=== PATIENT | male | born 1985 | race Two or more races ===

== ENCOUNTER 2017-08-02 04:38 | Inpatient (IN) | payer BC ==
[~2017-08-02] VITALS: Ht 180.3 cm; Wt 90.3 kg
[2017-08-02] MEDS ORDERED: LORazepam 0.5 MG TAB PO ONE (05:15)
[2017-08-02] MEDS ORDERED: hydrALAZINE HCL 20 MG/ML VL IV ONE (05:15)
[2017-08-02] MEDS ORDERED: MORPHINE SULFATE 10 MG/ML INJ 1ML SDV IV ONE (05:15)
[2017-08-02] MEDS ORDERED: ASPirin-EC 325mg tab PO ONE (05:15)
[2017-08-02 05:22] LABS: Basophils # (auto) 0 uL; Basophils % (auto) 0.4 % (0.0-2.0); Eosinophils # (auto) 0 uL; Eosinophils % (auto) 0.3 % (0.0-7.0); Hematocrit 48.6 % (41.0-53.0); Hemoglobin 17.3 g/dL (13.5-17.5); Lymphocytes # (auto) 1.2 uL; Lymphocytes % (auto) 13.8 % (10.0-50.0); Mean Corpuscular Hemoglobin 32.5 pg (28.0-32.0); Mean Corpuscular Hgb Conc. 35.5 g/dL (32.0-36.0); Mean Corpuscular Volume 91.4 fL (80.0-100.0); Mean Platelet Volume 6.8 fL (6.9-10.8); Monocytes # (auto) 0.5 uL; Monocytes % (auto) 5.4 % (0.0-12.0); Neutrophils % (auto) 80.1 % (37.0-80.0); Nucleated Red Blood Cells % 0.1 %; Platelet Count (auto) 332 10^3/uL (140-450); Red Cell Distribution Width 12.7 % (11.8-14.3); White Blood Cell 8.8 10^3/uL (4.4-10.8)
[2017-08-02 05:39] LABS: Albumin 4.4 g/dL (3.4-5.0); Alkaline Phosphatase 99 U/L (45-117); Anion Gap 14 (5-15); Aspartate Aminotransferase 31 U/L (15-37); BUN/Creatinine Ratio 15.2; Bilirubin, Total 0.8 mg/dL (0.2-1.0); Blood Urea Nitrogen 16 mg/dL (7-18); Calcium 8.9 mg/dL (8.5-10.1); Carbon Dioxide 20 mmol/L (21-32); Chloride 103 mmol/L (98-107); GFR African American 105 mL/min; GFR Non-African American 87 mL/min; Glucose 122 mg/dL (74-106); Magnesium 1.8 mg/dL (1.6-2.6); Potassium 3.6 mmol/L (3.5-5.1); Sodium 137 mmol/L (136-145); Total Protein 8.2 g/dL (6.4-8.2)
[2017-08-02 05:42] LABS: INR 1.02 (0.9-1.15); Partial Thromboplastin Time 25.4 sec (22.64-33.71); Prothrombin Time 11.1 sec (9.37-12.3)
[2017-08-02 06:14] LABS: B-Type Natriuretic Peptide 6.3 pg/mL (0-100); Temperature: 21.8 C (20.0-25.0)
[2017-08-02] MEDS ORDERED: ENALAPRILAT 1.25 MG/ML-1ML VIAL IV ONE (06:15)
[2017-08-02] MEDS ORDERED: AMLO5TAB2 PO (08:50)
[2017-08-02] MEDS ORDERED: NITROGLYCERIN 0.4 MG SL TAB SL PRN ×2 (09:45)
[2017-08-02] MEDS ORDERED: cloNIDine HCL 0.1 MG TAB PO PRN (09:45)
[2017-08-02] MEDS ORDERED: MORPHINE SULFATE 10 MG/ML INJ 1ML SDV IV PRN ×2 (09:45)
[2017-08-02] MEDS ORDERED: LABETALOL HCL 5 MG/ML 4ML SYRINGE IV PRN (09:45)
[2017-08-02] MEDS ORDERED: LORazepam 0.5 MG TAB PO PRN (09:45)
[2017-08-02] MEDS ORDERED: ACETAMINOPHEN 325 MG TAB PO PRN (09:45)
[2017-08-02] MEDS ORDERED: ONDANSETRON HCL 4 MG/2 ML VIAL IV PRN (09:45)
[2017-08-02] MEDS ORDERED: ZOLPIDEM TARTRATE 5 MG TAB PO PRN (09:45)
[2017-08-02] MEDS ORDERED: ALUM & MAG HYDROX-SIMETH LIQ(MAALOX) 30 ML PO ONE (09:45)
[2017-08-02] MEDS: DOCUSATE SOD 100 MG CAP PO SCH (10:00)
[2017-08-02] MEDS: ASPirin 81 mg TAB PO SCH (10:00)
[2017-08-02] MEDS ORDERED: CARVEDILOL 3.125 MG TAB PO SCH (10:00)
[2017-08-02] MEDS ORDERED: METOPROLOL TARTRATE 50 MG TAB PO ONE (10:30)
[2017-08-02] MEDS: CLOPIDOGREL BISULFATE 75 MG TAB PO SCH (11:30)
[2017-08-02] MEDS: ENALAPRIL MALEATE 2.5 MG TAB PO SCH ×2 (11:32→21:41)
[2017-08-02 12:00] VITALS: BP 158/94
[2017-08-02] MEDS ORDERED: IOHEXOL 350 MG/ML 100ML IJ ONE (13:02)
[2017-08-02] MEDS ORDERED: METOPROLOL TARTRATE 1MG/1ML-5ML VIAL IV ONE (13:06)
[2017-08-02] MEDS ORDERED: NITROGLYCERIN 0.4 MG SL TAB SL ONE (13:06)
[2017-08-02 15:00] VITALS: BP 157/118
[2017-08-02] MEDS: SODIUM CHLOR 0.9% PF (SALINE LOCK) 10ML VIAL IV SCH ×2 (15:45→21:42)
[2017-08-02 17:00] VITALS: BP 130/79
[2017-08-02 20:00] VITALS: BP 135/88
[2017-08-02 20:10] LABS: Urine RBC None Seen /hpf (0 - 3)
[2017-08-02 20:26] LABS: Urine Bilirubin Negative (Negative); Urine Blood Negative /uL (Negative); Urine Color Yellow (Yellow); Urine Glucose Normal (Normal); Urine Ketone Negative (Negative); Urine Nitrite Negative (Negative); Urine Squamous Epithelial Cell FEW /hpf (<5); Urine Urobilinogen Normal (Negative); Urine pH 6.5 (5.0-8.0)
[2017-08-02] MEDS: METOPROLOL TARTRATE 50 MG TAB PO SCH (21:41)
[2017-08-02 22:00] VITALS: BP 135/88
[2017-08-02] MEDS ORDERED: ATORVASTATIN 20 MG TAB PO SCH (22:00)
[2017-08-03 05:00] VITALS: BP 145/80
[2017-08-03] MEDS: SODIUM CHLOR 0.9% PF (SALINE LOCK) 10ML VIAL IV SCH ×2 (06:22→13:41)
[2017-08-03 07:36] LABS: BUN/Creatinine Ratio 14.2; Bilirubin, Total 1.1 mg/dL (0.2-1.0); Calcium 9.1 mg/dL (8.5-10.1); Magnesium 2.4 mg/dL (1.6-2.6); Potassium 4.4 mmol/L (3.5-5.1); Total Protein 7.7 g/dL (6.4-8.2)
[2017-08-03 07:48] LABS: Basophils # (auto) 0 uL; Basophils % (auto) 0.4 % (0.0-2.0); Eosinophils # (auto) 0 uL; Hematocrit 49.6 % (41.0-53.0); Hemoglobin 17.3 g/dL (13.5-17.5); Lymphocytes # (auto) 1.2 uL; Lymphocytes % (auto) 25.9 % (10.0-50.0); Mean Corpuscular Hemoglobin 32.4 pg (28.0-32.0); Mean Corpuscular Hgb Conc. 34.9 g/dL (32.0-36.0); Mean Corpuscular Volume 92.8 fL (80.0-100.0); Monocytes # (auto) 0.5 uL; Neutrophils # (auto) 2.8 uL; Neutrophils % (auto) 61.7 % (37.0-80.0); Nucleated Red Blood Cells % 0.3 %; Platelet Count (auto) 329 10^3/uL (140-450); Red Cell Distribution Width 12.8 % (11.8-14.3); White Blood Cell 4.5 10^3/uL (4.4-10.8)
[2017-08-03 09:00] VITALS: BP 151/89
[2017-08-03] MEDS: ENALAPRIL MALEATE 2.5 MG TAB PO SCH (09:37)
[2017-08-03] MEDS: CLOPIDOGREL BISULFATE 75 MG TAB PO SCH (09:37)
[2017-08-03] MEDS: ASPirin 81 mg TAB PO SCH (09:37)
[2017-08-03] MEDS: METOPROLOL TARTRATE 50 MG TAB PO SCH (09:38)
[2017-08-03] MEDS: DOCUSATE SOD 100 MG CAP PO SCH (10:00)
[2017-08-03 17:00] VITALS: BP 149/97
[2017-08-03 17:52] VITALS: BP 149/97
== END 2017-08-03 18:26 | disposition home or self-care (01) | DRG 311 ==
LOC: ER 04:38 → TELE 04:39 → TELE-E-ADS 11:02 → TELE-WESTW 12:57
PROVIDERS: ADMIT Internal Medicine; ATTEND Nurse Practitioner Acute Care
DX: I20.0 Unstable angina (principal); I50.43 Acute on chronic combined systolic (congestive) and diastolic (congestive) heart failure; I13.0 Hypertensive heart and chronic kidney disease with heart failure and stage 1 through stage 4 chronic kidney disease, or unspecified chronic kidney disease; R65.10 Systemic inflammatory response syndrome (SIRS) of non-infectious origin without acute organ dysfunction; N18.2 Chronic kidney disease, stage 2 (mild); Z82.49 Family history of ischemic heart disease and other diseases of the circulatory system
CPT/HCPCS: 36415; 71010; 80053; 80061; 81001; 83735; 83880; 84443; 84484; 85025; 85379; 85610; 85730; 87086; 93005; 93306; 94761; 96374; 96375

== ENCOUNTER 2022-01-13 09:50 | Inpatient (IN) | payer BC ==
[~2022-01-13] VITALS: Ht 180.3 cm; Wt 95.8 kg
[2022-01-13] VITALS (29 sets, daily range): BP systolic 116–155; BP diastolic 66–94
[~2022-01-13 09:50] MED LIST: AMLO-489 PO
[2022-01-13] MEDS ORDERED: SODIUM CHLORIDE 0.9% 1,000 ML IV ONE ×2 (10:30)
[2022-01-13] MEDS ORDERED: LABETALOL HCL 5 MG/ML 4ML SYRINGE IV ONE (10:30)
[2022-01-13] MEDS ORDERED: THIAMINE 100mg/ml INJ (200mg/2ml VIAL) IV ONE (10:30)
[2022-01-13] MEDS ORDERED: LORazepam 2MG/ML-1ML VIAL IV ONE (10:30)
[2022-01-13 10:53] LABS: Eosinophils # (auto) 0 10 ^3/uL (0-0.8); Mean Corpuscular Volume 91.2 fL (80.0-100.0)
[2022-01-13 10:54] LABS: Basophils # (auto) 0.1 10 ^3/uL (0-0.2); Basophils % (auto) 0.7 % (0.0-2.0); Eosinophils % (auto) 0.1 % (0.0-7.0); Hematocrit 49.5 % (41.0-53.0); Hemoglobin 17.8 g/dL (13.5-17.5); Lymphocytes # (auto) 1.6 10 ^3/uL (0.4-5.4); Lymphocytes % (auto) 22.2 % (10.0-50.0); Mean Corpuscular Hemoglobin 32.8 pg (28.0-32.0); Monocytes # (auto) 0.4 10 ^3/uL (0-1.3); Monocytes % (auto) 5.9 % (0.0-12.0); Neutrophils # (auto) 5.3 10 ^3/uL (1.6-8.6); Neutrophils % (auto) 71.1 % (37.0-80.0); Nucleated Red Blood Cells % 1.4 %; Red Blood Cells 5.43 10^6/uL (4.5-5.90); Red Cell Distribution Width 13.5 % (11.8-14.3); White Blood Cell 7.4 10^3/uL (4.4-10.8)
[2022-01-13 10:57] LABS: Albumin 4.6 g/dL (3.4-5.0); BUN/Creatinine Ratio 8.7; Calcium 9.3 mg/dL (8.5-10.1); Potassium 3.6 mmol/L (3.5-5.1)
[2022-01-13 11:02] LABS: Bilirubin, Total 0.7 mg/dL (0.2-1.0); Total Protein 8.7 g/dL (6.4-8.2)
[2022-01-13] MEDS ORDERED: hydrALAZINE HCL 20 MG/ML VL IV ONE (13:15)
[2022-01-13] MEDS ORDERED: MORPHINE SULFATE INJECTION 2 MG/ML SYRG IV PRN (14:00)
[2022-01-13] MEDS ORDERED: NITROGLYCERIN 0.4 MG SL TAB SL PRN (14:00)
[2022-01-13] MEDS: chlordiazePOXIDE HCL 25 MG CAP PO SCH ×2 (14:08→21:31)
[2022-01-13] MEDS ORDERED: SODIUM PHOSPHATES 40 MEQ in D5W 5% 250 ML IV ONE (16:15)
[2022-01-13] MEDS ORDERED: LABETALOL HCL 5 MG/ML 4ML SYRINGE IV PRN (17:00)
[2022-01-13] MEDS ORDERED: hydrALAZINE HCL 20 MG/ML VL IV PRN (17:00)
[2022-01-13] MEDS ORDERED: NEUTRA-PHOS TABLET PO SCH (18:00)
[2022-01-13] MEDS: LORazepam 2MG/ML-1ML VIAL IV PRN (20:33)
[2022-01-14] VITALS (57 sets, daily range): BP systolic 110–141; BP diastolic 57–89
[2022-01-14 00:22] LABS: Magnesium 1.9 mg/dL (1.6-2.6)
[2022-01-14 00:28] LABS: Phosphorus 2.6 mg/dL (2.5-4.90)
[2022-01-14 00:36] LABS: INR 1.1 (0.9-1.15); Partial Thromboplastin Time 26.4 sec (23.6-33.0)
[2022-01-14] MEDS ORDERED: HYDROcodone-ACET 5/325MG TAB PO ONE (02:15)
[2022-01-14] MEDS ORDERED: IPRATROPIUM BROM 0.5 MG/2.5ML INH SOL NEB ONE (02:15)
[2022-01-14] MEDS ORDERED: METOPROLOL SUCCINATE XL 50 MG TAB PO ONE (02:15)
[2022-01-14] MEDS ORDERED: MULTIPLE VITAMINS W/ MINERALS TAB PO ONE (02:15)
[2022-01-14] MEDS ORDERED: PANTOPRAZOLE 40 MG/10 ML VIAL INJ IV ONE (02:15)
[2022-01-14] MEDS ORDERED: DOCUSATE SOD 100 MG CAP PO PRN (02:15)
[2022-01-14] MEDS ORDERED: ONDANSETRON HCL 4 MG/2 ML VIAL IV PRN (02:15)
[2022-01-14] MEDS ORDERED: MORPHINE SULFATE INJECTION 2 MG/ML SYRG IV PRN (02:15)
[2022-01-14] MEDS ORDERED: FOLIC ACID 1 MG TAB PO ONE (02:15)
[2022-01-14] MEDS ORDERED: LACTULOSE 20Gm/30ML SOLN PO PRN (02:15)
[2022-01-14] MEDS ORDERED: HYDROcodone-ACET 5/325MG TAB PO PRN (02:15)
[2022-01-14] MEDS: LORazepam 2MG/ML-1ML VIAL IV PRN ×2 (02:32→21:34)
[2022-01-14 04:26] LABS: Albumin 3.7 g/dL (3.4-5.0); Calcium 8.5 mg/dL (8.5-10.1); Magnesium 1.9 mg/dL (1.6-2.6); Potassium 3.2 mmol/L (3.5-5.1)
[2022-01-14 04:28] LABS: BUN/Creatinine Ratio 8.3; Phosphorus 2.3 mg/dL (2.5-4.90)
[2022-01-14 04:31] LABS: Bilirubin, Total 1.5 mg/dL (0.2-1.0); Total Protein 7.4 g/dL (6.4-8.2)
[2022-01-14 04:40] LABS: INR 1.09 (0.9-1.15); Partial Thromboplastin Time 28.5 sec (23.6-33.0)
[2022-01-14 04:48] LABS: Basophils # (auto) 0 10 ^3/uL (0-0.2); Basophils % (auto) 0.3 % (0.0-2.0); Eosinophils # (auto) 0 10 ^3/uL (0-0.8); Eosinophils % (auto) 0.4 % (0.0-7.0); Hematocrit 45.1 % (41.0-53.0); Lymphocytes # (auto) 1.3 10 ^3/uL (0.4-5.4); Lymphocytes % (auto) 11.5 % (10.0-50.0); Mean Corpuscular Hemoglobin 32.3 pg (28.0-32.0); Mean Corpuscular Hgb Conc. 35.6 g/dL (32.0-36.0); Mean Corpuscular Volume 90.7 fL (80.0-100.0); Monocytes % (auto) 8.9 % (0.0-12.0); Neutrophils # (auto) 8.7 10 ^3/uL (1.6-8.6); Neutrophils % (auto) 78.9 % (37.0-80.0); Nucleated Red Blood Cells % 0.2 %; Red Blood Cells 4.97 10^6/uL (4.5-5.90); Red Cell Distribution Width 13.5 % (11.8-14.3)
[2022-01-14 05:16] LABS: CRP High Sensitivity 0.15 mg/dL (< 0.3); Uric Acid 7.1 mg/dL (3.5-7.2)
[2022-01-14] MEDS ORDERED: IPRATROPIUM BROM 0.5 MG/2.5ML INH SOL NEB SCH (06:00)
[2022-01-14] MEDS ORDERED: IPRATROPIUM BROM 0.5 MG/2.5ML INH SOL NEB PRN (06:00)
[2022-01-14] MEDS: ENOXAPARIN SOD 40 MG/0.4 ML SYRINGE SC SCH (09:54)
[2022-01-14] MEDS: THIAMINE HCL 100 MG TAB PO SCH (09:55)
[2022-01-14] MEDS: chlordiazePOXIDE HCL 25 MG CAP PO SCH ×2 (09:56→21:26)
[2022-01-14] MEDS: NIFEdipine ER 30 MG TAB PO SCH (09:56)
[2022-01-14] MEDS: BENAZEPRIL HCL 10 MG TAB PO SCH (09:57)
[2022-01-14] MEDS: METOPROLOL SUCCINATE XL 50 MG TAB PO SCH (09:58)
[2022-01-14] MEDS: FOLIC ACID 1 MG TAB PO SCH (09:58)
[2022-01-14] MEDS: ASPirin 81 mg TAB PO SCH (09:58)
[2022-01-14] MEDS ORDERED: MULTIPLE VITAMINS W/ MINERALS TAB PO SCH (10:00)
[2022-01-14] MEDS ORDERED: CHOLECALCIFEROL (VITD3) 2,000 UNIT CAP/TAB PO SCH (10:00)
[2022-01-14] MEDS ORDERED: PANTOPRAZOLE 40 MG/10 ML VIAL INJ IV SCH (10:00)
[2022-01-14 10:27] LABS: Hepatitis A Ab IgM Negative; Hepatitis B Core IgM Negative; Hepatitis C Antibody Negative (Negative)
[2022-01-14] MEDS ORDERED: ATORVASTATIN 20 MG TAB PO SCH (22:00)
[2022-01-15] VITALS (20 sets, daily range): BP systolic 104–138; BP diastolic 62–93
[2022-01-15 08:53] LABS: BUN/Creatinine Ratio 9.9; Potassium 3.7 mmol/L (3.5-5.1)
[2022-01-15] MEDS ORDERED: chlordiazePOXIDE HCL 25 MG CAP PO SCH (10:00)
[2022-01-15] MEDS: NIFEdipine ER 30 MG TAB PO SCH (10:34)
[2022-01-15] MEDS: BENAZEPRIL HCL 10 MG TAB PO SCH (10:34)
[2022-01-15] MEDS: THIAMINE HCL 100 MG TAB PO SCH (10:35)
[2022-01-15] MEDS: FOLIC ACID 1 MG TAB PO SCH (10:35)
[2022-01-15] MEDS: METOPROLOL SUCCINATE XL 50 MG TAB PO SCH (10:35)
[2022-01-15] MEDS: ENOXAPARIN SOD 40 MG/0.4 ML SYRINGE SC SCH (10:36)
[2022-01-15] MEDS: ASPirin 81 mg TAB PO SCH (10:36)
[2022-01-15] MEDS ORDERED: ATOR20TA PO (13:15)
[2022-01-15] MEDS ORDERED: BENA20TA14 PO (13:15)
[2022-01-15] MEDS ORDERED: METO25TA36 PO (13:15)
[2022-01-15] MEDS ORDERED: ASPI-378 PO (13:15)
[2022-01-15] MEDS ORDERED: NIFE1TAB31 PO (13:23)
[2022-01-16] MEDS ORDERED: chlordiazePOXIDE HCL 25 MG CAP PO SCH (07:00)
== END 2022-01-15 20:18 | disposition home or self-care (01) | DRG 305 ==
LOC: ER 09:50 → TELE 13:46 → ICU WEST 16:10
PROVIDERS: ADMIT Hospitalist; ATTEND Internal Medicine
DX: I16.1 Hypertensive emergency (principal); F10.239 Alcohol dependence with withdrawal, unspecified; E87.2 Acidosis; D75.1 Secondary polycythemia; E66.9 Obesity, unspecified; E78.5 Hyperlipidemia, unspecified; K21.9 Gastro-esophageal reflux disease without esophagitis; K70.10 Alcoholic hepatitis without ascites; E87.6 Hypokalemia; I10 Essential (primary) hypertension; R07.89 Other chest pain; Z20.822 Contact with and (suspected) exposure to COVID-19; R79.89 Other specified abnormal findings of blood chemistry; F12.90 Cannabis use, unspecified, uncomplicated; K70.9 Alcoholic liver disease, unspecified; Z91.14 Patient's other noncompliance with medication regimen; Z82.49 Family history of ischemic heart disease and other diseases of the circulatory system; Z91.19 Patient's noncompliance with other medical treatment and regimen; Z71.6 Tobacco abuse counseling; Z68.29 Body mass index [BMI] 29.0-29.9, adult
CPT/HCPCS: 36415; 71045; 80048; 80053; 80061; 80074; 80320; 82550; 82728; 83036; 83615; 83690; 83735; 83880; 84100; 84443; 84484; 84550; 85025; 85379; 85610; 85652; 85730; 86141; 87040; 87081; 93005; 93306; 96361; 96374; 96375; 99291; C9113; G0378; J3490

== ENCOUNTER 2024-03-30 04:20 | Emergency (ER) | payer BC ==
[~2024-03-30] VITALS: Ht 177.8 cm; Wt 89.0 kg
[~2024-03-30 04:20] MED LIST changes: -AMLO-489 PO; +ASPI-378 PO; +BENA-36 PO; +METO25TA36 PO; +NIFE1TAB31 PO
[2024-03-30 04:40] LABS: Basophils # (auto) 0.1 10 ^3/uL (0-0.2); Eosinophils # (auto) 0 10 ^3/uL (0-0.8); Hemoglobin 17.7 g/dL (13.5-17.5); Monocytes # (auto) 0.6 10 ^3/uL (0-1.3); Nucleated Red Blood Cells % 0.1 %
[2024-03-30 04:42] LABS: Basophils % (auto) 0.8 % (0.0-2.0); Eosinophils % (auto) 0.5 % (0.0-7.0); Hematocrit 49.1 % (41.0-53.0); Lymphocytes # (auto) 2.5 10 ^3/uL (0.4-5.4); Lymphocytes % (auto) 34.4 % (10.0-50.0); Mean Corpuscular Hemoglobin 31.2 pg (28.0-32.0); Mean Corpuscular Hgb Conc. 36.1 g/dL (32.0-36.0); Mean Corpuscular Volume 86.4 fL (80.0-100.0); Monocytes % (auto) 8.6 % (0.0-12.0); Neutrophils % (auto) 55.7 % (37.0-80.0); Red Blood Cells 5.68 10^6/uL (4.5-5.90); Red Cell Distribution Width 13.9 % (11.8-14.3); White Blood Cell 7.2 10^3/uL (4.4-10.8)
[2024-03-30 05:05] LABS: Alanine Aminotransferase 58 U/L (7-40); Albumin 4.9 g/dL (3.2-4.8); Alkaline Phosphatase 119 U/L (46-116); Anion Gap 11 (5-15); Aspartate Aminotransferase 49 U/L (13-40); BUN/Creatinine Ratio 5.7 (10.0-20.0); Blood Urea Nitrogen 5 mg/dL (9-23); Calcium 10.8 mg/dL (8.7-10.4); Carbon Dioxide 23 mmol/L (20-30); Chloride 99 mmol/L (98-107); Glucose 129 mg/dL (74-106); Potassium 3.4 mmol/L (3.5-5.1); Sodium 133 mmol/L (136-145)
[2024-03-30 05:06] LABS: Bilirubin, Total 1.1 mg/dL (0.2-1.0)
[2024-03-30] MEDS: METOPROLOL TARTRATE 1MG/1ML-5ML VIAL IV ONE (06:35)
[2024-03-30] MEDS: ASPirin 81 mg TAB PO ONE (06:48)
[2024-03-30] MEDS: LORazepam 2MG/ML-1ML VIAL IV ONE (06:48)
[2024-03-30] MEDS: IOHEXOL 350 MG/ML 100ML IJ ONE (07:01)
[2024-03-30 07:42] VITALS: PULSE 79; RESP 18; O2SAT 97
[2024-03-30 09:00] VITALS: BP 176/116; PULSE 82; RESP 14
[2024-03-30] MEDS: AZITHROMYCIN 250 MG TAB PO ONE (09:16)
[2024-03-30] MEDS ORDERED: AZIT-74 PO (09:17)
[2024-03-30 09:22] LABS: Urine Bacteria None Seen /hpf (None Seen)
[2024-03-30 09:57] LABS: Urine Blood Negative /uL (Negative); Urine Clarity Clear (Clear); Urine Color Light-Yellow (Yellow); Urine Protein, UAD TRACE (Negative); Urine Specific Gravity 1.022 (1.001-1.035); Urine Urobilinogen Normal (Negative); Urine WBC <1 /hpf (0 - 3)
[2024-03-30 10:12] LABS: Amphetamine Screen, Urine Neg (NEGATIVE); Barbiturate Scree,Urine Neg (NEGATIVE)
[2024-03-30 10:13] LABS: Benzodiazephine Screen, Urine Neg (NEGATIVE); Cannabinoid Screen, Urine Pos (NEGATIVE); Cocaine Screen, Urine Neg (NEGATIVE); Opiate Scree,Urine Neg (NEGATIVE); Phencyclidine Screen, Urine Neg (NEGATIVE)
== END 2024-03-30 09:57 | disposition home or self-care (01) ==
LOC: ER 04:20
DX: J18.9 Pneumonia, unspecified organism (principal); M62.838 Other muscle spasm; F17.200 Nicotine dependence, unspecified, uncomplicated; F10.939 Alcohol use, unspecified with withdrawal, unspecified; H53.8 Other visual disturbances; I10 Essential (primary) hypertension; Z01.30 Encounter for examination of blood pressure without abnormal findings; Z79.899 Other long term (current) drug therapy; Y90.0 Blood alcohol level of less than 20 mg/100 ml
CPT/HCPCS: 36415; 70450; 71045; 71275; 80053; 80307; 80320; 81001; 84484; 85025; 93005; 96374; 96375; 99285; J2060; Q9967

== ENCOUNTER 2025-09-19 02:15 | Inpatient (IN) | payer BC ==
[~2025-09-19] VITALS: Ht 180.3 cm; Wt 97.5 kg
[~2025-09-19 02:15] MED LIST changes: +AZIT-74 PO
--- NOTE | 2025-09-19 02:25 | ED.PDOC ---
GI ASSESSMENT HPI Comments HPI: Poor Historian. 40-year-old male with a history of alcohol abuse presents to emergency department by ambulance for multiple episodes of nausea and vomiting blood in the vomit and melena for the last few days. Patient has been drinking heavy alcohol in the last few days. Patient was hypoxic at the scene 92% at room air. They placed him on supplemental oxygen. Patient received 4 mg of Zofran prior to arrival and some fluid. Patient was tachycardic in the 140s. Patient complains of upper abdominal pain as well. Last bowel movement was black in color two days ago. History of constipation. Past Medical History: Alcohol abuse, angina, hypertension, hyperlipidemia, tobacco abuse, obesity Past Surgical History: Denies any allergies REVIEW OF SYSTEMS: CONSTITUTIONAL: Denies acute: fever, diaphoresis, chills, HEAD: Denies acute: headache, photophobia Eyes: Denies acute: Double vision, vision loss, eye pain, eye discharge. EARS: Denies acute: tinnitus, hearing loss, ear discharge, ear pain, THROAT: Denies acute: sore throat, swelling, difficulty swallowing , pain with swallowing, change in voice. NECK: Denies acute: neck pain, neck swelling, stiff neck. HEART: Denies acute : chest pain, palpitations, LUNGS: Denies acute: SOB, wheezing, cough, hemoptysis ABDOMEN: Denies acute: diarrhea, , , hematochezia SKIN: Denies acute: rash, redness, lesions, itchiness. EXTREMITIES: Denies acute: calf pain, numbness, tingling, weakness, denies pain in extremity. Denies acute: Low back pain. Neuro: Denies acute: focal neurological deficit, motor or sensory focal neurological deficit, tremors, seizure like activity, confusion, dizziness, change in mental status, loss of bowel or bladder function, cauda equina like symptoms. : Denies acute: dysuria, hematuria, flank pain, increase in urinary frequency. PSYCH: Denies acute: hallucination, suicidal ideation, homicidal ideation. PHYSICAL EXAM: General: ----moderate----acute distress, awake and alert. Head: normocephalic, atraumatic. No raccoon's eyes, no marie sign. Neck: supple, trachea is midline, no swelling. Throat: Normal phonation. Eyes:, no erythema, no purulent discharge, no proptosis, no icterus. Heart: regular tachycardic, no significant murmur appreciated. Lungs: no apparent respiratory distress, Able to speak in full sentences. No wheezing, no rhonchi, no crackles. No stridors Clear to auscultation bilaterally. Abdomen: Epigastric tender to palpation, non distended, soft, no guarding, no rebound, + bowel sounds. Neuro: Awake, Alert, oriented to name, self, situation, follows commands GCS=15. Speech is normal. Skin: no petechia, no purpura, no cyanosis, non-pale, not jaundice. Lower extremities: --no - Pitting edema no deformity, no focal swelling, no calf TTP. Makes eye contact. moves all four extremities. Face: no apparent facial droop. As far as abdominal pain: DDX include but not limited to diverticulitis, colitis, gastroenteritis, acute abdomen, SBO, enteritis, constipation, volvulus, appendicitis, Gallbladder disease, choledocolithiasis, ascending cholangitis, pancreatitis, intraAbdominal mass/neoplasm, hepatitis, UTI, pylonephritis, kidney stone, aneurysm, dissection, Inflammatory bowel disease, gastroparesis, ischemic bowel. Food poisoning, bacterial/parasitic/viral etiology, trauma, diabetes DKA, ED COURSE: DISCLAIMER: This medical document was created using an electronic medical record system with voice recognition software and computerized dictation system. Although this document has been carefully reviewed, there might still be some phonetic and typographical errors. Occasional wrong-word or "sound-alike" substitutions may have occurred due to the inherent limitations of voice recognition software. These areas are purely typographical due to imperfections of the software programs and do not reflect any compromise in the patient's medical care. Please read the chart carefully and recognize, using context, where these substitutions have occurred. Time Seen by MD: 02:20 Primary Care Provider: UNKNOWN Reviewed Notes: Salon Sales Consultant Notes, Allergies Allergies: Coded Allergies: NO KNOWN ALLERGIES (Unverified , 08/02/17) Home Meds Active Scripts Azithromycin (Zithromax) 250 Mg Tab, 250 MG PO DAILY for 5 Days, #5 TAB Prov:TRANG QUACH MD 03/30/24 Nifedipine (Nifedipine Er) 30 Mg Tab, 1 TAB PO DAILY, #30 TAB Prov:TIFFANIE CONRAD MD 01/15/22 Benazepril Hcl (Benazepril Hcl) 20 Mg Tab, 1 TAB PO DAILY, #30 TAB Prov:TIFFANIE CONRAD MD 01/15/22 Metoprolol Succinate (Toprol Xl) 25 Mg Tab, 1 TAB PO DAILY, #30 TAB Prov:TIFFANIE CONRAD MD 01/15/22 Aspirin (JOAQUINA ASPIRIN EC LOW DOSE) 81 Mg Tab, 1 TAB PO DAILY, #30 TAB Prov:TIFFANIE CONRAD MD 01/15/22 Information Source: Patient, Emergency Med Personnel Mode of Arrival: EMS Past Medical History PAST MEDICAL HISTORY: HTN Surgical History: Denies all surgeries Family History Family History: Unknown Social History Smoker: Non-Smoker Alcohol: Heavy Drugs: Denies Drug Use Lives In: Home EKG EKG : Pulse Rate (adult): 139 [place]: Normal Cardiac Rhythm: ST Block: None Hypertrophy: None ST: Normal Was a procedure done? Was a procedure done?: No GI differential Dx Differential Diagnosis: Other (Diverticulitis, colitis, fistula, neoplasm, hemorrhoids, anal fissures, constipation, Crohn's disease, ulcerative colitis) X-Ray, Labs, Meds, VS Vital Signs Date Time Temp Pulse Resp B/P (MAP) Pulse Ox O2 Delivery O2 Flow Rate FiO2 09/19/25 03:08 98.7 136 32 158/114 (129) 91 98.7 09/19/25 02:25 139 09/19/25 02:20 98.0 140 26 145/115 97 98.0 09/19/25 02:18 139 Lab Test 09/19/25 02:35 Range/Units White Blood Count 21.4 H 4.4-10.8 10^3/uL Red Blood Count 5.62 4.5-5.90 10^6/uL Hemoglobin 19.1 H 13.5-17.5 g/dL Hematocrit 55.0 H 41.0-53.0 % Mean Corpuscular Volume 97.9 80.0-100.0 fL Mean Corpuscular Hemoglobin 34.0 H 28.0-32.0 pg Mean Corpuscular Hemoglobin Concent 34.7 32.0-36.0 g/dL Red Cell Distribution Width 13.0 11.8-14.3 % Platelet Count 210 140-450 10^3/uL Mean Platelet Volume 8.5 6.9-10.8 fL Neutrophils (%) (Auto) 92.1 H 37.0-80.0 % Lymphocytes (%) (Auto) 1.4 L 10.0-50.0 % Monocytes (%) (Auto) 5.8 0.0-12.0 % Eosinophils (%) (Auto) 0.0 0.0-7.0 % Basophils (%) (Auto) 0.7 0.0-2.0 % Neutrophils # (Auto) 19.7 H 1.6-8.6 10 ^3/uL Lymphocytes # (Auto) 0.3 L 0.4-5.4 10 ^3/uL Monocytes # (Auto) 1.2 0-1.3 10 ^3/uL Eosinophils # (Auto) 0 0-0.8 10 ^3/uL Basophils # (Auto) 0.1 0-0.2 10 ^3/uL Nucleated Red Blood Cells 0.1 % Prothrombin Time 11.9 H 9.3-11.8 sec Prothrombin Time INR 1.14 0.9-1.15 Activated Partial Thromboplast Time 28.4 24.5-34.5 SEC Sodium Level 131 L 136-145 mmol/L Potassium Level 4.3 3.5-5.1 mmol/L Chloride Level 87 L 98-107 mmol/L Carbon Dioxide Level 19 L 20-31 mmol/L Anion Gap 25 H 5-15 Blood Urea Nitrogen 13 9-23 mg/dL Creatinine 1.06 0.700-1.30 mg/dL Glomerular Filtration Rate Calc 91 >90 mL/min BUN/Creatinine Ratio 12.3 10.0-20.0 Serum Glucose 141 H 74-106 mg/dL Lactic Acid Level 5.1 *H 0.4-2.0 mmol/L Calcium Level 9.6 8.7-10.4 mg/dL Magnesium Level 2.1 1.6-2.6 mg/dL Total Bilirubin 3.9 H 0.2-1.0 mg/dL Aspartate Amino Transferase (AST) 363 H 13-40 U/L Alanine Aminotransferase (ALT) 197 H 7-40 U/L Alkaline Phosphatase 179 H 46-116 U/L Troponin I High Sensitivity 10 </=54 ng/L Total Protein 8.0 5.7-8.2 g/dL Albumin 4.9 H 3.2-4.8 g/dL Lipase 1303 H 12-53 U/L Plasma/Serum Blood Alcohol 298.9 H <10 mg/dL Hepatitis A Antibody Total Pending Hepatitis B Surface Antigen Pending Hepatitis B Surface Antibody Pending Hepatitis B Core Total Antibody Pending Hepatitis C Antibody Pending Current Medications Medications (Trade) Dose Ordered Sig/Giovanny Route Start Time Stop Time Status Last Admin Sodium Chloride 1,000 ml @ 1,000 mls/hr Q1H ONCE IV 09/19/25 02:30 09/19/25 03:29 DC 09/19/25 02:30 Ondansetron HCl (Zofran) 8 mg ONCE ONCE IV 09/19/25 02:30 09/19/25 02:31 DC 09/19/25 02:30 Pantoprazole Sodium (Protonix) 40 mg ONCE ONCE IV 09/19/25 02:30 09/19/25 02:31 DC 09/19/25 02:30 Octreotide Acetate 100 mcg/ Sodium Chloride 51 ml @ 204 mls/hr ONCE ONCE IV 09/19/25 02:30 09/19/25 02:44 DC 09/19/25 04:49 Octreotide Acetate 500 mcg/ Sodium Chloride 100 ml @ 10 mls/hr Q10H IV 09/19/25 02:30 09/19/25 05:06 DC 09/19/25 04:49 Piperacillin Sod/ Tazobactam Sod 100 ml @ 100 mls/hr ONCE ONCE IV 09/19/25 02:30 09/19/25 03:29 DC 09/19/25 02:30 Sodium Chloride 1,000 ml @ 1,000 mls/hr Q1H ONCE IV 09/19/25 03:00 09/19/25 03:59 DC 09/19/25 04:35 [place] [id number] Ph: [phone] DIAGNOSTIC IMAGING Diagnostic Imaging Report : [id number] Signed PATIENT: RADHA DINERO ACCT: [id number] UNIT: [id number] : 1985 LOC: OVERFLOW ROOM / BED: [address] [place] [address] A AGE / SEX: 40 / M ADM STATUS: ADM IN SERVICE 0224 ORDERING PHYSICIAN: RAJESH GRAHAM DO PROCEDURE(s): ABPL - CT AB PEL WO CON-NO ORAL OR IV REASON: gi bleed ORDER NUMBER(s): [id number], ACCESSION NUMBER(s): [id number] EXAM: CT CT AB PEL WO CON-NO ORAL OR IV History: gi bleed Comparison Study: [facility] on DOS: 01/15/22 TECHNIQUE: CT acquisition of the abdomen and pelvis without contrast. Axial, coronal and sagittal multiplanar reformats were obtained from the axial data set by the technologist. Radiation Dose : 1. Abdomen/Pelvis: CTDIvol 23.27 mGy, DLP 1267.32 mGy*cm. FINDINGS: Evaluation of solid organs is limited due to lack of intravenous contrast use. Exam from earlier limited by beam hardening and streak artifact from arms down positioning. Lower Chest: No acute findings. Liver: Severe diffuse hypoattenuation. Gallbladder and Biliary Tree: Increased density of intraluminal contents in the gallbladder. No evident wall thickening, calcified stone, or ductal dilation. Pancreas: Diffuse parenchymal and surrounding soft tissue stranding. No obvious fluid collection. Spleen: Unremarkable. Adrenal Glands: Unremarkable. Kidneys/Ureters: No urinary stone or obstruction. Bladder: Grossly unremarkable for degree of distention. Pelvic Organs: Unremarkable as visualized. Bowel: Mild wall thickening of the distal stomach and proximal duodenum. Otherwise normal caliber without wall thickening. No evidence of appendicitis. Few colonic diverticula without diverticulitis. Vasculature: Unremarkable. Lymphadenopathy: No obvious adenopathy. Peritoneum: Peripancreatic soft tissue stranding with mild confluence, extending within the retroperitoneum and peritoneum into the pelvis with mild ascites. No free air. Abdominal Wall: Small fat containing umbilical hernia. Musculoskeletal: No acute findings. IMPRESSION: 1. Findings compatible with acute interstitial pancreatitis, correlate with lab values. Wall thickening of the stomach and duodenum is likely reactive. 2. Severe hepatic steatosis. 3. Colonic diverticulosis. Radiation optimization: All CT scans at this facility use at least one of these dose optimization techniques: automated exposure control mA and/or kV adjustment per patient size (includes targeted exams where dose is matched to clinical indication) or iterative reconstruction. ATED BY: TYE SHORT MD DICTATED DATE/TIME: 09/19/25345 SIGNED BY: TYE SHORT MD SIGNED DATE/TIME: 09/19/25345 CC: Time of 1ST Reevaluation: 02:20 Reevaluation 1ST: Unchanged Patient Education/Counseling: Diagnosis, Treatment Family Education/Counseling: No Family Present Comments MDM: patient presented with the above HPI.--GI bleed and abdominal pain----workup was initiated. patient was found with the above mentioned gabriel gnosis. the following medications were ordered: please refer to order lists of meds and tests obtained by myself Dr. Graham. Patient ED course and VS have been stabilized. Patient has been reassessed in the ED and remained in a stable condition. Pertinent incidental findings were discussed with the patient and/or family. Patient/family voices understanding and is agreeable with plan. Patient has been observed in the ED adequate length of time to insure improvement/stability. Escalation of care considered: Consideration of escalation to observation or admission Patient was ADMITTED to the medicine team for further evaluation and treatment of their presentation. All the reports of any imaging studies that were ordered by myself were reviewed by myself. SEPSIS Sepsis Screen Physician Orders Border Guard (09/19/25 ) Drug Screen (09/19/25 02:24) Urinalysis (09/19/25 02:24) Ct Ab Pel Wo Con-No Oral Or Iv (09/19/25 02:24) Blood Culture (09/19/25 02:55) Vital Signs Date Time Temp Pulse Resp B/P (MAP) Pulse Ox O2 Delivery O2 Flow Rate FiO2 09/19/25 03:08 98.7 136 32 158/114 (129) 91 98.7 09/19/25 02:25 139 09/19/25 02:20 98.0 140 26 145/115 97 98.0 09/19/25 02:18 139 Laboratory Tests Test 09/19/25 02:35 Lactic Acid Level 5.1 mmol/L (0.4-2.0) *H White Blood Count 21.4 10^3/uL (4.4-10.8) H Medications Medications Dose Ordered Sig/Giovanny Route Start Time Stop Time Status Last Admin Dose Admin Octreotide Acetate 100 mcg/ Sodium Chloride 51 ml @ 204 mls/hr ONCE ONCE IV 09/19/25 02:30 09/19/25 02:44 DC 09/19/25 04:49 Octreotide Acetate 500 mcg/ Sodium Chloride 100 ml @ 10 mls/hr Q10H IV 09/19/25 02:30 09/19/25 05:06 DC 09/19/25 04:49 Ondansetron HCl 8 mg ONCE ONCE IV 09/19/25 02:30 09/19/25 02:31 DC 09/19/25 02:30 Pantoprazole Sodium 40 mg ONCE ONCE IV 09/19/25 02:30 09/19/25 02:31 DC 09/19/25 02:30 Piperacillin Sod/ Tazobactam Sod 100 ml @ 100 mls/hr ONCE ONCE IV 09/19/25 02:30 09/19/25 03:29 DC 09/19/25 02:30 Sodium Chloride 1,000 ml @ 1,000 mls/hr Q1H ONCE IV 09/19/25 02:30 09/19/25 03:29 DC 09/19/25 02:30 Sodium Chloride 1,000 ml @ 1,000 mls/hr Q1H ONCE IV 09/19/25 03:00 09/19/25 03:59 DC 09/19/25 04:35 Departure 1 Departure Time of Disposition: 02:27 Impression: Primary Impression: Alcohol abuse Additional Impressions: GI bleed Hematemesis Melena Abdominal pain Acute pancreatitis Elevated LFTs Hyperbilirubinemia Disposition: ADMITTED INPATIENT Admit to: [facility] Condition: Guarded Discharged With: Self Critical Care Note Critical Care Time?: Yes (45 min-critical care time only) Critical care comment: Due to a high probability of clinically significant, life threatening deterioration, the patient required my highest level of preparedness to intervene emergently and I personally spent this critical care time directly and personally managing the patient. This critical care time included obtaining a history; examining the patient; pulse oximetry; ordering and review of studies; arranging urgent treatment with development of a management plan; evaluation of patient's response to treatment; frequent reassessment; and, discussions with other providers. This critical care time was performed to assess and manage the high probability of imminent, life-threatening deterioration that could result in multi-organ failure. It was exclusive of separately billable procedures and treating other patients and teaching time. Please see my other sections and the rest of the note for further information on patient assessment and treatment. I personally scribed for RAJESH GRAHAM DO ([email or web address]) on 09/19/25 at 02:25. Electronically submitted by Amilcar Sapp ([email or web address]). I personally scribed for RAJESH GRAHAM DO ([email or web address]) on 09/19/25 at 04:51. Electronically submitted by Amilcar Sapp ([email or web address]). RAJESH GRAHAM DO Sep 19, 2025 02:25
[2025-09-19] MEDS: PIPERACILLIN-TAZOB 3.375GM 100 ML IV ONE (02:30)
[2025-09-19] MEDS: SODIUM CHLORIDE 0.9% 1,000 ML IV ONE ×2 (02:30→04:35)
[2025-09-19] MEDS: ONDANSETRON HCL 4 MG/2 ML VIAL IV ONE (02:30)
[2025-09-19] MEDS: PANTOPRAZOLE 40 MG/10 ML VIAL INJ IV ONE (02:30)
[2025-09-19 02:50] LABS: Hematocrit 55.0 % (41.0-53.0); Hemoglobin 19.1 g/dL (13.5-17.5); Mean Corpuscular Hemoglobin 34.0 pg (28.0-32.0); Mean Corpuscular Volume 97.9 fL (80.0-100.0); Nucleated Red Blood Cells % 0.1 %
--- NOTE | 2025-09-19 02:51 | ECG ---
[facility] Test Date: 2025-09-19 Test Time: 02:18:39 Pat Name: RADHA DINERO Department: Room: 0279T Gender: M President Ceo & Founder: ANÍBAL : 1985 Requested By: RAJESH GRAHAM Order Number: [id number] Reading MD: Brandon Mcghee Measurements Intervals [place] Rate: 139 P: 65 FL: 135 QRS: 89 QRSD: 83 T: -41 QT: 286 QTc: 435 Interpretive Statements Sinus tachycardia Probable left atrial enlargement Probable anteroseptal infarct, recent Abnormal T, consider ischemia, inferior leads Electronically Signed On 09-20-2025 20:08:38 PST by Brandon Mcghee Please click the below link to view image of tracing.
[2025-09-19 03:07] LABS: Anion Gap 25 (5-15); BUN/Creatinine Ratio 12.3 (10.0-20.0); Blood Urea Nitrogen 13 mg/dL (9-23); Calcium 9.6 mg/dL (8.7-10.4); INR 1.14 (0.9-1.15); Magnesium 2.1 mg/dL (1.6-2.6); Partial Thromboplastin Time 28.4 SEC (24.5-34.5); Potassium 4.3 mmol/L (3.5-5.1); Prothrombin Time 11.9 sec (9.3-11.8); Total Protein 8.0 g/dL (5.7-8.2)
[2025-09-19 03:17] LABS: Chloride 87 mmol/L (98-107); Lactic Acid w/Reflex 5.1 mmol/L (0.4-2.0); Sodium 131 mmol/L (136-145)
[2025-09-19 03:18] LABS: Alanine Aminotransferase 197 U/L (7-40); Albumin 4.9 g/dL (3.2-4.8); Alkaline Phosphatase 179 U/L (46-116); Bilirubin, Total 3.9 mg/dL (0.2-1.0); Carbon Dioxide 19 mmol/L (20-31); Glucose 141 mg/dL (74-106); Lipase 1303 U/L (12-53)
--- NOTE | 2025-09-19 03:23 | DVHHPRES ---
History of Present Illness Resident Creating Document: KURTIS JEREZ RESIDENT History of Present Illness This is a 40-year-old male with past medical history of heavy alcohol abuse, diverticulitis, hypertension, hyperlipidemia presented to the ED via EMS with a complaint of severe epigastric pain and hematemesis since morning prior to this admission. The patient stated that for last 1 and half year he was drinking heavily 1 bottle of vodka everyday, intermittently having upper epigastric pain but since morning he was experiencing intense epigastric pain which was sharp colicky in nature, 10/10, radiates to the back and associated with intractable coffee-ground emesis , few episodes of fresh blood, chills and cold sweats. He also mentioned that he has previous few episodes of jaundice and recurrent hospital admission due to alcohol intoxication. mentioned that the patient was not eating anything for last 2 days because of abdominal pain. He denies high fever, shortness of breath, chest pain, headache, palpitation, dizziness, dysuria, hematuria or any altered bowel habit. Past Medical History Diverticulitis, hypertension, hyperlipidemia Past Surgical History ACL repair in teen. Family History Family history is significant for hypertension Past Social History Lives with family Smokes 5-6 cigarettes per day, weeds, heavy drinker and never tried any other drugs Review of Systems Constitutional: Yes: Sweats; No: Fever, Chills, Weakness, Malaise, Other Eyes: No: Pain, Vision change, Conjunctivae inflammation, Eyelid inflammation, Other, Redness ENT: No: Ear pain, Ear discharge, Nose pain, Nose discharge, Nose congestion, Mouth pain, Mouth swelling, Throat pain, Throat swelling, Other Respiratory: No: Cough, Dry, Shortness of breath, SOB with excertion, Wheezing, Hemoptysis, Pleuritic Pain, Sputum, Wheezing, Other Cardiovascular: Palpitations; No: Chest Pain, Orthopnea, Paroxysmal Noc. Dyspnea, Edema, Lt Headedness, Other Gastrointestinal: Nausea, Vomiting, Abdominal Pain, Constipation Genitourinary: No Dysuria, No Frequency, No Incontinence, No Hematuria, No Retention, No Other Musculoskeletal: No: other, neck pain, shoulder pain, arm pain, back pain, hand pain, leg pain, foot pain Skin: No: Rash, Lesions, Jaundice, Bruising, Other Neurological: No: Weakness, Numbness, Incoordination, Change in speech, Confusion, Seizures, Other Allergies: Coded Allergies: NO KNOWN ALLERGIES (Unverified , 08/02/17) Medications Current Medications Medications Dose Ordered Sig/Giovanny Route Start Time Stop Time Status Last Admin Dose Admin Octreotide Acetate 500 mcg/ Sodium Chloride 100 ml @ 10 mls/hr Q10H IV 09/19/25 02:30 Exam Vital Signs Vital Signs Date Time Temp Pulse Resp B/P (MAP) Pulse Ox O2 Delivery O2 Flow Rate FiO2 09/19/25 02:25 139 Exam Physical examination: General Appearance: Alert, Oriented X3, Cooperative, mild distress HEENT: Atraumatic, PERRLA, EOMI, Mucous membrane moist/pink Respiratory: Clear to auscultation, Normal air movement Cardiovascular: Regular rate, Normal S1, Normal S2, No murmurs, no chest wall tenderness Abdominal: Normal bowel sounds, Soft, tenderness in the epigastric region, No hepatospenomegaly, No masses Extremities: No clubbing, No cyanosis, No edema, Normal pulses, No tenderness/swelling Skin: No rashes, No breakdown, No significant lesion Neuro: Normal speech, Strength at 5/5 X4 ext, Normal tone, Sensation intact, Cranial nerves 3-12 NL, Reflexes 2+ Psych/Mental Status: Could not be assessed Labs/Xrays Labs Test 09/19/25 02:35 Range/Units White Blood Count 21.4 H 4.4-10.8 10^3/uL Red Blood Count 5.62 4.5-5.90 10^6/uL Hemoglobin 19.1 H 13.5-17.5 g/dL Hematocrit 55.0 H 41.0-53.0 % Mean Corpuscular Volume 97.9 80.0-100.0 fL Mean Corpuscular Hemoglobin 34.0 H 28.0-32.0 pg Mean Corpuscular Hemoglobin Concent 34.7 32.0-36.0 g/dL Red Cell Distribution Width 13.0 11.8-14.3 % Platelet Count 210 140-450 10^3/uL Mean Platelet Volume 8.5 6.9-10.8 fL Neutrophils (%) (Auto) 92.1 H 37.0-80.0 % Lymphocytes (%) (Auto) 1.4 L 10.0-50.0 % Monocytes (%) (Auto) 5.8 0.0-12.0 % Eosinophils (%) (Auto) 0.0 0.0-7.0 % Basophils (%) (Auto) 0.7 0.0-2.0 % Neutrophils # (Auto) 19.7 H 1.6-8.6 10 ^3/uL Lymphocytes # (Auto) 0.3 L 0.4-5.4 10 ^3/uL Monocytes # (Auto) 1.2 0-1.3 10 ^3/uL Eosinophils # (Auto) 0 0-0.8 10 ^3/uL Basophils # (Auto) 0.1 0-0.2 10 ^3/uL Nucleated Red Blood Cells 0.1 % Prothrombin Time 11.9 H 9.3-11.8 sec Prothrombin Time INR 1.14 0.9-1.15 Activated Partial Thromboplast Time 28.4 24.5-34.5 SEC Sodium Level 131 L 136-145 mmol/L Potassium Level 4.3 3.5-5.1 mmol/L Chloride Level 87 L 98-107 mmol/L Carbon Dioxide Level 19 L 20-31 mmol/L Anion Gap 25 H 5-15 Blood Urea Nitrogen 13 9-23 mg/dL Creatinine 1.06 0.700-1.30 mg/dL Glomerular Filtration Rate Calc 91 >90 mL/min BUN/Creatinine Ratio 12.3 10.0-20.0 Serum Glucose 141 H 74-106 mg/dL Lactic Acid Level 5.1 *H 0.4-2.0 mmol/L Calcium Level 9.6 8.7-10.4 mg/dL Magnesium Level 2.1 1.6-2.6 mg/dL Total Bilirubin 3.9 H 0.2-1.0 mg/dL Aspartate Amino Transferase (AST) 363 H 13-40 U/L Alanine Aminotransferase (ALT) 197 H 7-40 U/L Alkaline Phosphatase 179 H 46-116 U/L Troponin I High Sensitivity 10 </=54 ng/L Total Protein 8.0 5.7-8.2 g/dL Albumin 4.9 H 3.2-4.8 g/dL Lipase 1303 H 12-53 U/L SEPSIS Sepsis Screen Physician Orders Wire Dropper (09/19/25 ) Comprehensive Metabolic Panel (09/19/25 02:24) Blood Alcohol (09/19/25 02:24) Drug Screen (09/19/25 02:24) Lactic Acid W/ Reflex Order (09/19/25 02:24) Lipase (09/19/25 02:24) Magnesium (09/19/25 02:24) Urinalysis (09/19/25 02:24) Ct Ab Pel Wo Con-No Oral Or Iv (09/19/25 02:24) Troponin-I Hs (09/19/25 03:24) Troponin-I Hs (09/19/25 05:24) Sodium Chloride 0.9% (09/19/25 02:30) Sodium Chl 0.9% (So... W/Octreotide Acet (09/19/25 02:30) Type And Screen (09/19/25 02:24) Piperacillin-Tazob 3.375gm (Zosyn 3.375g (09/19/25 02:30) Sodium Chloride 0.9% (09/19/25 03:00) Blood Culture (09/19/25 02:55) Vital Signs Date Time Temp Pulse Resp B/P (MAP) Pulse Ox O2 Delivery O2 Flow Rate FiO2 09/19/25 02:25 139 09/19/25 02:18 139 Laboratory Tests Test 09/19/25 02:35 Lactic Acid Level 5.1 mmol/L (0.4-2.0) *H White Blood Count 21.4 10^3/uL (4.4-10.8) H Medications Medications Dose Ordered Sig/Giovanny Route Start Time Stop Time Status Last Admin Dose Admin Ondansetron HCl 8 mg ONCE ONCE IV 09/19/25 02:30 09/19/25 02:31 DC 09/19/25 02:30 8 MG Pantoprazole Sodium 40 mg ONCE ONCE IV 09/19/25 02:30 09/19/25 02:31 DC 09/19/25 02:30 40 MG Assessment/Plan Assessment/Plan Assessment and plan: # Acute upper GI bleeding # Acute pancreatitis likely secondary to heavy alcohol abuse # Sepsis due to above # Alcohol-induced gastritis # Hemo concentration due to intractable vomiting # Lactic acidosis possibly due to starvation # Anion gap metabolic acidosis likely secondary to lactic acidosis - CBC showed hemo concentration - Elevated lipase - Serum alcohol level 298.9 - CT abdomen pelvis without contrast demonstrated findings compatible with acute interstitial pancreatitis. - IV thiamine 100 mg once, multivitamin and folic acid once and daily - 2 L bolus NS given - NPO - IV lactated ringer at 125 mL/hours - IV morphine 2 mg q.6 PRN - IV Protonix 40 mg once and b.i.d. - IV ondansetron 4 mg once and Q 8 p.r.n. - IV Zosyn 3.375 g Q 8 hours - Pending stool occult blood, blood culture, urine bacterial culture - Consulted GI # Hyperbilirubinemia and transaminitis likely secondary to alcohol-induced severe hepatic steatosis - Monitor CMP # PUD prophylaxis - Patient is on Protonix # DVT prophylaxis - hold due to GI bleeding Goal of care and code status discussed with the patient for more than 23 minutes full code Plan discussed with Dr. Patel Plan discussed with: Patient, Spouse, Other (RN) Visit Coding STANDARD RES Billing Provider: NICK PATEL MD Date of Service if different f: Sep 19, 2025 Common Visit Codes: 62040-[id number] INP/OBS CARE (HIGH) Secondary Visit Codes: [id number] CARE PLAN 30 MINUTES KURTIS JEREZ RESIDENT Sep 19, 2025 03:23
[2025-09-19] MEDS ORDERED: NITROGLYCERIN 0.4 MG SL TAB SL PRN (03:30)
--- NOTE | 2025-09-19 03:49 | DVH ---
EXAM: CT CT AB PEL WO CON-NO ORAL OR IV History: gi bleed Comparison Study: [facility] on DOS: 01/15/22 TECHNIQUE: CT acquisition of the abdomen and pelvis without contrast. Axial, coronal and sagittal multiplanar reformats were obtained from the axial data set by the technologist. Radiation Dose : 1. Abdomen/Pelvis: CTDIvol 23.27 mGy, DLP 1267.32 mGy*cm. FINDINGS: Evaluation of solid organs is limited due to lack of intravenous contrast use. Exam from earlier limited by beam hardening and streak artifact from arms down positioning. Lower Chest: No acute findings. Liver: Severe diffuse hypoattenuation. Gallbladder and Biliary Tree: Increased density of intraluminal contents in the gallbladder. No evident wall thickening, calcified stone, or ductal dilation. Pancreas: Diffuse parenchymal and surrounding soft tissue stranding. No obvious fluid collection. Spleen: Unremarkable. Adrenal Glands: Unremarkable. Kidneys/Ureters: No urinary stone or obstruction. Bladder: Grossly unremarkable for degree of distention. Pelvic Organs: Unremarkable as visualized. Bowel: Mild wall thickening of the distal stomach and proximal duodenum. Otherwise normal caliber without wall thickening. No evidence of appendicitis. Few colonic diverticula without diverticulitis. Vasculature: Unremarkable. Lymphadenopathy: No obvious adenopathy. Peritoneum: Peripancreatic soft tissue stranding with mild confluence, extending within the retroperitoneum and peritoneum into the pelvis with mild ascites. No free air. Abdominal Wall: Small fat containing umbilical hernia. Musculoskeletal: No acute findings. IMPRESSION: 1. Findings compatible with acute interstitial pancreatitis, correlate with lab values. Wall thickening of the stomach and duodenum is likely reactive. 2. Severe hepatic steatosis. 3. Colonic diverticulosis. Radiation optimization: All CT scans at this facility use at least one of these dose optimization techniques: automated exposure control mA and/or kV adjustment per patient size (includes targeted exams where dose is matched to clinical indication) or iterative reconstruction.
[2025-09-19 03:50] VITALS: PULSE 135; RESP 21; O2SAT 95
[2025-09-19 04:28] LABS: Base Excess -9.4 mmol/L (-2.0-3.0)
[2025-09-19] MEDS: HYDROmorphone HCL 2 MG/ML VL/or syr IV ONE (04:34)
[2025-09-19] MEDS: THIAMINE 100mg/ml INJ (200mg/2ml VIAL) IV ONE (04:34)
[2025-09-19] MEDS: OCTREOTIDE ACETATE 500 MCG/ML VL ONE (04:48)
[2025-09-19] MEDS: OCTREOTIDE ACETATE 100 MCG/ML VL ONE (04:49)
[2025-09-19] MEDS: OCTREOTIDE ACETATE 100 MCG in SODIUM CHL 0.9% 50 ML IV ONE (04:49)
[2025-09-19] MEDS: OCTREOTIDE ACETATE 500 MCG in SODIUM CHL 0.9% 99 ML IV SCH (04:49)
[2025-09-19] MEDS: LABETALOL HCL 20 MG/4 ML VL IV ONE (05:00)
[2025-09-19] MEDS ORDERED: MORPHINE SULFATE INJ 2 MG/ml SYRG IV PRN (06:00)
[2025-09-19] MEDS: LACTATED RINGER'S 1,000 ML IV SCH (06:35)
[2025-09-19 08:30] VITALS: PULSE 129; RESP 20; O2SAT 90
--- NOTE | 2025-09-19 08:33 | DVH ---
CLINICAL INFORMATION: Abdominal pain. TECHNIQUE: Grayscale sonographic imaging of the right upper quadrant of the abdomen was performed, assisted by color Doppler techniques. COMPARISON: CT from earlier the same day. FINDINGS: The gallbladder wall measures 2 mm in thickness, within normal limits. There is gallbladder sludge. Small focal hyperechoic structure at the gallbladder fundus measuring up to 0.5 x 0.4 x 0.7 cm without vascular flow demonstrated, possible polyp or small sludge ball. Negative reported sonographic Arguello's sign. The common bile duct measures 5.4 mm in diameter, within normal limits. Liver is enlarged, measuring up to 21.6 cm in craniocaudal dimension, with increased echogenicity, consistent with fatty infiltration. Possible trace ascites adjacent to the liver, including near the gallbladder. The pancreas is obscured by bowel gas. The right kidney measures 11.7 cm. There is no hydronephrosis. Right renal cortical echogenicity and cortical thickness are within normal limits. IMPRESSION: 1. Gallbladder sludge with possible small polyp or sludge ball in the fundus. No sonographic evidence of acute cholecystitis. 2. Hepatomegaly and hepatic steatosis. 3. Suspected trace perihepatic ascites, including adjacent to the gallbladder.
[2025-09-19] MEDS: MORPHINE SULFATE INJ 2 MG/ml SYRG IV PRN (08:58)
[2025-09-19 09:17] LABS: Hematocrit 49.1 % (41.0-53.0); Hemoglobin 17.2 g/dL (13.5-17.5); Nucleated Red Blood Cells % 0.0 %
[2025-09-19 09:19] LABS: Mean Corpuscular Hemoglobin 34.6 pg (28.0-32.0); Mean Corpuscular Volume 98.7 fL (80.0-100.0)
[2025-09-19 09:33] LABS: Albumin 4.3 g/dL (3.2-4.8); Anion Gap 21 (5-15); BUN/Creatinine Ratio 18.2 (10.0-20.0); Blood Urea Nitrogen 14 mg/dL (9-23); Potassium 4.6 mmol/L (3.5-5.1); Total Protein 6.6 g/dL (5.7-8.2)
[2025-09-19 09:41] LABS: Alanine Aminotransferase 183 U/L (7-40); Alkaline Phosphatase 157 U/L (46-116); Bilirubin, Total 4.0 mg/dL (0.2-1.0); Calcium 8.6 mg/dL (8.7-10.4); Carbon Dioxide 18 mmol/L (20-31); Chloride 96 mmol/L (98-107); Glucose 143 mg/dL (74-106); Sodium 135 mmol/L (136-145)
[2025-09-19 10:47] LABS: Urine Amorphous Crystal FEW /hpf (None Seen); Urine Protein, UAD 3+ (Negative)
[2025-09-19 10:52] LABS: Amphetamine Screen, Urine Neg (NEGATIVE); Barbiturate Scree,Urine Neg (NEGATIVE); Benzodiazephine Screen, Urine Neg (NEGATIVE); Cannabinoid Screen, Urine Pos (NEGATIVE); Cocaine Screen, Urine Neg (NEGATIVE); Opiate Scree,Urine Pos (NEGATIVE); Phencyclidine Screen, Urine Neg (NEGATIVE)
[2025-09-19 11:01] LABS: Hepatitis A Total Antibody Positive (Negative); Hepatitis B Surface Antigen Negative (Negative); Hepatitis C Antibody Negative (Negative)
[2025-09-19] MEDS: B-COMPLEX W/ C & FOLIC ACID(NEPHROVITE TAB) PO SCH (11:13)
[2025-09-19] MEDS: PANTOPRAZOLE 40 MG/10 ML VIAL INJ IV SCH (11:13)
[2025-09-19] MEDS: BENAZEPRIL HCL 10 MG TAB PO SCH (11:14)
[2025-09-19] MEDS: THIAMINE HCL 100 MG TAB PO SCH (11:14)
[2025-09-19] MEDS: LORazepam 2MG/ML-1ML VIAL IV PRN (12:38)
--- NOTE | 2025-09-19 13:20 | DVHINCON2 ---
GI Consult Consult Note GI consult note Date of Consultation: 09/19/2025 Chief Complaint: Upper GI bleeding Referring Physician: Dr. Milligan H&P: 40-year-old male with past medical history of heavy alcohol use, diverticulitis, hypertension, hyperlipidemia admitted with complains of epigastric pain for two days which is radiating into his periumbilical area. Patient also has nausea and vomiting and has hematemesis. Patient has melena denies red blood in stool. Admits to drinking about 750 mL every day for a long time. No EGD in past Past Medical History: Diverticulitis, hypertension, hyperlipidemia Past Surgical History: ACL repair i Social History: Smokes 5-6 cigarettes per day, weeds, heavy drinker and never tried any other drugs Family History: Noncontributory Review of Systems: Constitutional: no fever, chill, weight loss HEENT: no eye pain, no hearing loss, no oral lesion, no scleral icterus Heart: no chest pain, no chest pressure Lung: no cough, no dyspnea with exertion Abdomen: see HPI Physical exam: General: NAD, AAOX3 Chest: lung gallardo clear to auscultation Heart: RRR, no murmur Abdomen: non-distended, + epigastric tenderness to palpation, +BS Labs: Labs Test 09/19/25 02:35 Range/Units White Blood Count 21.4 H 4.4-10.8 10^3/uL Red Blood Count 5.62 4.5-5.90 10^6/uL Hemoglobin 19.1 H 13.5-17.5 g/dL Hematocrit 55.0 H 41.0-53.0 % Mean Corpuscular Volume 97.9 80.0-100.0 fL Mean Corpuscular Hemoglobin 34.0 H 28.0-32.0 pg Mean Corpuscular Hemoglobin Concent 34.7 32.0-36.0 g/dL Red Cell Distribution Width 13.0 11.8-14.3 % Platelet Count 210 140-450 10^3/uL Mean Platelet Volume 8.5 6.9-10.8 fL Neutrophils (%) (Auto) 92.1 H 37.0-80.0 % Lymphocytes (%) (Auto) 1.4 L 10.0-50.0 % Monocytes (%) (Auto) 5.8 0.0-12.0 % Eosinophils (%) (Auto) 0.0 0.0-7.0 % Basophils (%) (Auto) 0.7 0.0-2.0 % Neutrophils # (Auto) 19.7 H 1.6-8.6 10 ^3/uL Lymphocytes # (Auto) 0.3 L 0.4-5.4 10 ^3/uL Monocytes # (Auto) 1.2 0-1.3 10 ^3/uL Eosinophils # (Auto) 0 0-0.8 10 ^3/uL Basophils # (Auto) 0.1 0-0.2 10 ^3/uL Nucleated Red Blood Cells 0.1 % Prothrombin Time 11.9 H 9.3-11.8 sec Prothrombin Time INR 1.14 0.9-1.15 Activated Partial Thromboplast Time 28.4 24.5-34.5 SEC Sodium Level 131 L 136-145 mmol/L Potassium Level 4.3 3.5-5.1 mmol/L Chloride Level 87 L 98-107 mmol/L Carbon Dioxide Level 19 L 20-31 mmol/L Anion Gap 25 H 5-15 Blood Urea Nitrogen 13 9-23 mg/dL Creatinine 1.06 0.700-1.30 mg/dL Glomerular Filtration Rate Calc 91 >90 mL/min BUN/Creatinine Ratio 12.3 10.0-20.0 Serum Glucose 141 H 74-106 mg/dL Lactic Acid Level 5.1 *H 0.4-2.0 mmol/L Calcium Level 9.6 8.7-10.4 mg/dL Magnesium Level 2.1 1.6-2.6 mg/dL Total Bilirubin 3.9 H 0.2-1.0 mg/dL Aspartate Amino Transferase (AST) 363 H 13-40 U/L Alanine Aminotransferase (ALT) 197 H 7-40 U/L Alkaline Phosphatase 179 H 46-116 U/L Troponin I High Sensitivity 10 </=54 ng/L Total Protein 8.0 5.7-8.2 g/dL Albumin 4.9 H 3.2-4.8 g/dL Lipase 1303 H 12-53 U/L Imaging: CT abdomen pelvis IMPRESSION: 1. Findings compatible with acute interstitial pancreatitis, correlate with lab values. Wall thickening of the stomach and duodenum is likely reactive. 2. Severe hepatic steatosis. 3. Colonic diverticulosis. Abdominal ultrasound IMPRESSION: 1. Gallbladder sludge with possible small polyp or sludge ball in the fundus. No sonographic evidence of acute cholecystitis. 2. Hepatomegaly and hepatic steatosis. 3. Suspected trace perihepatic ascites, including adjacent to the gallbladder. Assessment: Acute GI bleed Acute pancreatitis Abdominal pain Nausea and vomiting History of heavy alcohol use Plan: Discussed with Dr. Marion - Pt recommended for possible EGD today. Pt was informed of the risks (bleeding, infection, perforation, reaction to sedation medications and cardiopulmonary arrest) and benefit but patient does not want to have this procedure done today Yolanda discriminant function 8.1. No steroids required at this time. Good prognosis Protonix and Carafate Zofran as needed Clear liquid diet DC alcohol discussed extensively Monitor labs transfuse if hemoglobin less than seven Possible EGD to be planned for Wednesday when patient is stable and willing to undergo procedure Discussed plan with patient, family at bedside and RN Date of Service: Sep 19, 2025 Billing Provider: COLLIN ADDISON Common Visit Codes: CONSULT ONLY Consultation Codes: 85598-[id number] CONSULT <60MIN COLLIN ADDISON Sep 19, 2025 13:20
[2025-09-19] MEDS: LORazepam 2MG/ML-1ML VIAL IV ONE (14:55)
[2025-09-19] MEDS ORDERED: MORPHINE SULFATE 4 MG/ML SYR/VIAL IV PRN (15:00)
[2025-09-19] MEDS: METOPROLOL TARTRATE 1MG/1ML-5ML VIAL IV ONE ×2 (15:15→15:17)
[2025-09-19] MEDS: ONDANSETRON HCL 4 MG/2 ML VIAL IV PRN (18:36)
[2025-09-19] MEDS: MORPHINE SULFATE 4 MG/ML SYR/VIAL IV PRN (18:37)
[2025-09-19] MEDS: METOPROLOL TARTRATE 50 MG TAB PO SCH (18:40)
[2025-09-19] MEDS: FOLIC ACID 1 MG, MULTIPLE VITAMIN 10 ML, MAGNESIUM SULF SDV 50% 8 MEQ, THIAMINE INJ 100... INJ SCH (18:41)
[2025-09-19 19:30] VITALS: PULSE 108; RESP 19; O2SAT 95
[2025-09-19 22:10] VITALS: BP 133/83; PULSE 121; RESP 18; TEMP 98.7; O2SAT 96
[2025-09-19] MEDS: SUCRALFATE 1 GM/10 ML ORAL SUSP PO SCH (22:57)
[2025-09-19 23:35] VITALS: PULSE 121; RESP 18
[2025-09-19 23:38] VITALS: BP 138/83; PULSE 121; RESP 18; TEMP 98.7; O2SAT 96
[2025-09-20 01:00] VITALS: BP 134/98; PULSE 119; RESP 17; TEMP 98.2; O2SAT 93
[2025-09-20 03:56] VITALS: BP 124/94; PULSE 144; RESP 18; TEMP 98.3; O2SAT 94
[2025-09-20] MEDS: dilTIAZem 25 MG/5 ML VIAL IV ONE (04:48)
[2025-09-20 05:00] VITALS: BP 136/95; PULSE 140; RESP 19; TEMP 98; O2SAT 92
== END 2025-09-20 07:27 | disposition left against medical advice (07) | DRG 871 ==
LOC: ER 02:15 → EDBD 02:15 → OVERFLOW 03:21 → TELE-WESTW 22:07
PROVIDERS: ADMIT Hospitalist; ATTEND Hospitalist
DX: A41.9 Sepsis, unspecified organism (principal); K29.21 Alcoholic gastritis with bleeding; K85.20 Alcohol induced acute pancreatitis without necrosis or infection; E87.20 Acidosis, unspecified; E66.9 Obesity, unspecified; I10 Essential (primary) hypertension; K76.0 Fatty (change of) liver, not elsewhere classified; F10.10 Alcohol abuse, uncomplicated; E78.5 Hyperlipidemia, unspecified; F17.210 Nicotine dependence, cigarettes, uncomplicated; R79.89 Other specified abnormal findings of blood chemistry; E80.6 Other disorders of bilirubin metabolism; Z53.29 Procedure and treatment not carried out because of patient's decision for other reasons; Z68.30 Body mass index [BMI] 30.0-30.9, adult; Y90.9 Presence of alcohol in blood, level not specified; Z79.899 Other long term (current) drug therapy
CPT/HCPCS: 36415; 36600; 74176; 76705; 80053; 80307; 80320; 81001; 82306; 82607; 82805; 83036; 83605; 83690; 83735; 84443; 84484; 85025; 85610; 85730; 86704; 86706; 86708; 86803; 86850; 86900; 86901; 87040; 87086; 87340; 93005; 96365; 96375; 99291; G0378; J2405; J2470; J2543